=== PATIENT | male | born 1960 | race Caucasian/White ===

== ENCOUNTER → 2017-07-20 | Outpatient (CLI) | payer BC | END | disposition home or self-care (01) | LOC: LAB 17:34 | DX: N39.0 Urinary tract infection, site not specified (principal) | CPT/HCPCS: 87086 ==

== ENCOUNTER → 2024-06-16 | Outpatient (CLI) | payer BC ==
[~2024-06-16] MED LIST: ATOR20 PO
[2024-06-16 15:47] LABS: Very Low Density Lipoprot Chol 35 mg/dL (6-32)
[2024-06-16 15:49] LABS: Alanine Aminotransfer (ALT/SGP 34 U/L (12-78); Albumin, Blood 3.9 g/dL (3.4-5.0); Albumin/Globulin Ratio 1.3 (0.8-1.8); Alk Phos 65 U/L (50-136); Anion Gap 11 mmol/L (3-11); Aspartate Aminotrans (AST/SGOT 17 U/L (12-37); Bilirubin, Total 0.4 mg/dL (0.1-1.0); Blood Urea Nitrogen 19 mg/dL (8-24); Bun/Creatinine Ratio 18.8 (12.0-20.0); CHOL/HDL RATIO 5.3; CO2, Blood 28 mmol/L (21-32); Calcium, Blood 9.6 mg/dL (8.5-10.1); Chloride, Blood 106 mmol/L (98-108); Cholesterol 259 mg/dL (50-200); Creatinine, Blood 1.01 mg/dL (0.60-1.20); Globulin, Blood 2.9 g/dL (2.2-4.0); Glomerular Filtration Rate 84 (60-); Glucose, Blood 101 mg/dL (70-99); HDL Cholesterol 49 mg/dL (>39); LDL/HDL RATIO 3.6; Low Density Lipoprotein Chol 175 mg/dL (0-110); Potassium, Blood 4.2 mmol/L (3.5-5.5); Sodium, Blood 141 mmol/L (136-145); Total Protein, Blood 6.8 g/dL (6.4-8.2); Triglycerides 176 mg/dL (30-160)
== END | disposition home or self-care (01) ==
LOC: LAB 14:41 → LAB SHORT 14:41
PROVIDERS: Hospitalist
DX: E78.5 Hyperlipidemia, unspecified (principal)
CPT/HCPCS: 80053; 80061

== ENCOUNTER 2024-08-15 09:18 | Day surgery (SDC) | payer BC ==
[~2024-08-15] VITALS: Ht 190.5 cm; Wt 102.4 kg
[2024-08-15] VITALS (14 sets, daily range): BP systolic 110–152; BP diastolic 63–93
[~2024-08-15 09:18] MED LIST changes: +Crestor40 MG PO; +PROBIOTIC1 EA14 PO
[2024-08-15] MEDS ORDERED: Acetaminophen 500 MG Tab PO SCH ×2 (09:30→16:00)
[2024-08-15] MEDS ORDERED: Lactated Ringer's 1,000 ML IV SCH ×2 (09:30→12:30)
[2024-08-15] MEDS ORDERED: Chlorhexidine Mouth Care 15 ML UDC MT SCH (09:30)
[2024-08-15] MEDS ORDERED: Ropivacaine 0.5% HCl/Pf 123.125 MG,EPINEPHrine HCL 0.25 MG,Ketorolac Tromethamine 15 MG... INFIL SCH (09:30)
[2024-08-15] MEDS ORDERED: CeFAZolin Sodium 2,000 MG in NS 100 ML IV SCH ×2 (09:30→21:00)
[2024-08-15] MEDS ORDERED: OxyCODONE HCL 10 MG TABCR PO SCH (09:30)
[2024-08-15] MEDS ORDERED: Tranexamic Acid 100 ML IV SCH (09:39)
[2024-08-15] MEDS ORDERED: Magnesium Hydroxide Conc 10 ML UDC PO PRN (12:20)
[2024-08-15] MEDS ORDERED: Metoclopramide HCl 5MG / ML 2ML Vial IV PRN (12:20)
[2024-08-15] MEDS ORDERED: Bisacodyl 10 MG Supp PR PRN (12:20)
[2024-08-15] MEDS ORDERED: Promethazine HCl 25 MG Tab PO PRN (12:20)
[2024-08-15] MEDS ORDERED: Ondansetron HCl 2 MG / ML 2ML Vial IV PRN (12:25)
[2024-08-15] MEDS ORDERED: OxyCODONE HCL 5 MG TAB PO PRN ×2 (12:25)
[2024-08-15] MEDS ORDERED: DiphenhydrAMINE HCL 25 MG Cap PO PRN (12:25)
[2024-08-15] MEDS ORDERED: FLU VACC TS2024-25(6MOS UP)/PF 45 MCG/0.5 ML SYRINGE IM SCH (12:25)
[2024-08-15] MEDS ORDERED: HYDROmorphone HCl/Pf 1MG SYR IV PRN (12:25)
[2024-08-15] MEDS ORDERED: propofoL 100 ML IV ONE (12:33)
[2024-08-15] MEDS ORDERED: Midazolam HCl 1MG / ML 2ML Vial ONE (12:59)
[2024-08-15] MEDS ORDERED: FentaNYL Citrate 50 MCG/ML 2 ML Injection ONE (12:59)
[2024-08-15] MEDS ORDERED: Dexamethasone Sod Phos 10 MG/ML 1ML VIAL ONE (13:19)
[2024-08-15] MEDS ORDERED: propofoL 20 ML IV ONE (14:34)
[2024-08-15] MEDS ORDERED: Ketorolac Tromethamine 15mg Vial IV SCH (18:00)
--- NOTE | 2024-08-15 20:16 | NUR ---
SHIFT SUMMARY POD0 L TKA, A/OX4, VSS, TOLERATING PO, PAIN WELL MANAGE, AMBULATED TO THE BATHROOM THIS SHIFT, DISCUSSED THERAPY EXERISES. DISCUSSED DISCHARGE INSTRUCTIONS WITH HIM HE STATED DESIRE TO GO HOME TONIGHT. DC INSTRUCTION DISCUSSION INCLUDED HOME CARE, MEDICATIONS, AND FOLLOW UP CARE. NO QUESTIONS REGARDING DC INSTRUCTIONS. PLAN FOR NOC RN TO GET SIGNATURE AND ESCORT OUT WHEN READY.
--- NOTE | 2024-08-15 20:30 | NUR ---
DISCHARGE PT REQUESTED TO DISCHARGE THIS EVENING. CIARRA REYNOSO RN WENT OVER DISCHARGE INSTRUCTIONS WITH PT. MEDF REC COMPLETED, AND DISCHARGE PAPERWORK SIGNED. IV REMOVED. WAITING TO BE WHEELED BY PAD MACHINE OFFBEARER AT THIS TIME.
--- NOTE | 2024-08-15 20:40 | NUR ---
DISCHARGE IV REMOVED, PT HAS VOIDED AND AMBULATED. PT REPORTS MINIMAL PAIN, RATES 2/10, REPORTS THAT HIS LEFT KNEE FEELS GOOD. PT WHEELED OUT BY [employer] TEACHER. BELONGINGS WITH PT.
[2024-08-15] MEDS ORDERED: Docusate Sodium 100 MG Cap PO SCH (21:00)
[2024-08-16] MEDS ORDERED: Rosuvastatin Calcium 10 MG Tab PO SCH (09:00)
[2024-08-16] MEDS ORDERED: Aspirin 81 MG Chew PO SCH (09:00)
[2024-08-16] MEDS ORDERED: Lactobacil 2-S.Thermo-Bifido 1 1 Cap PO SCH (09:00)
== END 2024-08-15 20:30 | disposition home or self-care (01) ==
LOC: ORSCMMR 09:18 → ORD 11:00 → SURS 15:27 → ORSCMMR 20:30 → SURS 20:30
PROVIDERS: Orthopaedic Surgery
PROC: 0SRD0JA Replacement of Left Knee Joint with Synthetic Substitute, Uncemented, Open Approach (ICD-10-PCS; principal; 2024-08-15 11:00)
PROC: 8E0Y0CZ Robotic Assisted Procedure of Lower Extremity, Open Approach (ICD-10-PCS; principal; 2024-08-15 11:00)
DX: M17.12 Unilateral primary osteoarthritis, left knee (principal); E78.5 Hyperlipidemia, unspecified; Z79.899 Other long term (current) drug therapy
CPT/HCPCS: 73560-LT; A9270; C1713; C1776; J0171; J0690; J0735; J1100; J1885; J2250; J2704; J2795; J3010; J7120